=== PATIENT | female | born 2000 | race American Indian/Alaskan Native ===

== ENCOUNTER 2021-12-22 16:33 | Emergency (ER) | payer SELFPAY | END 2021-12-22 16:55 | disposition left against medical advice (07) | LOC: ED 16:33 | DX: R06.02 Shortness of breath (principal); Z53.21 Procedure and treatment not carried out due to patient leaving prior to being seen by health care provider ==

== ENCOUNTER 2021-12-25 22:47 | Emergency (ER) | payer SELFPAY ==
[2021-12-25 23:18] VITALS: BP 114/75
[2021-12-26 00:28] LABS: Bilirubin,Urine Moderate (Negative); Color,Urine Yellow (Yellow)
[2021-12-26 00:29] LABS: Blood,Urine Negative (Negative); Urobilinogen,Urine 0.2 mg/dL (<2.0)
[2021-12-26 00:31] LABS: Ictotest,Urine Negative (Negative)
[2021-12-26 00:38] LABS: Mucus,Urine 3+ /HPF
== END 2021-12-26 04:00 | disposition left against medical advice (07) ==
LOC: ED 22:47
DX: R06.02 Shortness of breath (principal); R10.9 Unspecified abdominal pain; Z53.21 Procedure and treatment not carried out due to patient leaving prior to being seen by health care provider
CPT/HCPCS: 81001